=== PATIENT | male | born 1995 | race Caucasian/White ===

== ENCOUNTER 2022-12-03 10:14 | Emergency (ER) | payer SELFPAY ==
[~2022-12-03] VITALS: Ht 170.2 cm; Wt 83.9 kg
[2022-12-03 10:45] VITALS: BP 130/80
[2022-12-03] MEDS ORDERED: IBUPROFEN 400MG TABLET PO ONE (10:45)
== END 2022-12-03 12:29 | disposition home or self-care (01) ==
LOC: ER 10:14
DX: M79.675 Pain in left toe(s) (principal)
CPT/HCPCS: 73620; 99283